=== PATIENT | female | born 1980 | race Two or more races ===

== ENCOUNTER 2020-06-15 06:11 | Emergency (ER) | payer MEDICAID ==
[~2020-06-15] VITALS: Ht 157.5 cm; Wt 63.5 kg
[2020-06-15 07:05] LABS: Basophils # (auto) 0 10 ^3/uL (0-0.2); Basophils % (auto) 0.5 % (0.0-2.0); Eosinophils # (auto) 0.1 10 ^3/uL (0-0.8); Eosinophils % (auto) 1.4 % (0.0-7.0); Hematocrit 38.8 % (36.0-46.0); Hemoglobin 13.1 g/dL (12.2-16.2); Lymphocytes % (auto) 31.1 % (10.0-50.0); Mean Corpuscular Hemoglobin 30.2 pg (28.0-32.0); Mean Corpuscular Hgb Conc. 33.9 g/dL (32.0-36.0); Mean Corpuscular Volume 89.3 fL (80.0-100.0); Monocytes # (auto) 0.6 10 ^3/uL (0-1.3); Monocytes % (auto) 9.4 % (0.0-12.0); Neutrophils # (auto) 3.6 10 ^3/uL (1.6-8.6); Neutrophils % (auto) 57.6 % (37.0-80.0); Nucleated Red Blood Cells % 0.1 %; Platelet Count (auto) 327 10^3/uL (140-450); Red Blood Cells 4.34 10^6/uL (4.0-5.20); Red Cell Distribution Width 13.2 % (11.8-14.3); White Blood Cell 6.3 10^3/uL (4.4-10.8)
[2020-06-15 07:09] LABS: Albumin 4.2 g/dL (3.4-5.0); Anion Gap 5 (5-15); Blood Urea Nitrogen 7 mg/dL (7-18); Calcium 8.6 mg/dL (8.5-10.1); Carbon Dioxide 24 mmol/L (21-32); Chloride 107 mmol/L (98-107); Glucose 91 mg/dL (74-106); Potassium 3.3 mmol/L (3.5-5.1); Sodium 136 mmol/L (136-145)
[2020-06-15 07:15] LABS: Alanine Aminotransferase 26 U/L (13-56); Alkaline Phosphatase 69 U/L (45-117); Aspartate Aminotransferase 19 U/L (15-37); Bilirubin, Total 0.6 mg/dL (0.2-1.0); GFR African American 178 mL/min; GFR Non-African American 147 mL/min; Total Protein 7.7 g/dL (6.4-8.2)
[2020-06-15] MEDS ORDERED: ASPirin 81 mg TAB PO ONE (07:15)
[2020-06-15] MEDS ORDERED: SODIUM CHLORIDE 0.9% 1,000 ML IV ONE (07:15)
[2020-06-15 07:34] LABS: INR 1.07 (0.9-1.15); Partial Thromboplastin Time 30.7 sec (23.0-31.2)
[2020-06-15] MEDS ORDERED: POTASSIUM EFFERVESENT TAB 25 MEQ PO ONE (08:30)
[2020-06-15 12:16] LABS: Urine Bacteria NONE SEEN /hpf (None Seen); Urine Blood Negative /uL (Negative); Urine Mucus FEW (None Seen); Urine Specific Gravity 1.005 (1.001-1.035); Urine WBC <1 /hpf (0 - 5)
[2020-06-15 13:59] VITALS: BP 103/66
== END 2020-06-15 14:11 | disposition home or self-care (01) ==
LOC: ER 06:11
DX: R07.89 Other chest pain (principal); E87.6 Hypokalemia; E03.9 Hypothyroidism, unspecified
CPT/HCPCS: 36415; 71046; 80053; 81001; 81025; 83735; 84443; 84484; 85025; 85610; 85730; 93005; 96360; 99285; J7030

== ENCOUNTER 2020-09-01 11:04 | Emergency (ER) | payer MEDICAID ==
[~2020-09-01] VITALS: Ht 157.5 cm; Wt 65.8 kg
[2020-09-01 12:16] VITALS: BP 118/93
== END 2020-09-01 15:23 | disposition home or self-care (01) ==
LOC: ER 11:04
DX: U07.1 COVID-19 (principal)
CPT/HCPCS: 36415; 71045; 87426

== ENCOUNTER 2021-10-07 12:37 | Emergency (ER) | payer MEDICAID ==
[~2021-10-07] VITALS: Ht 152.4 cm; Wt 63.5 kg
[2021-10-07 13:28] LABS: Urine WBC None Seen /hpf (0 - 5)
[2021-10-07 13:49] LABS: Urine Bacteria NONE SEEN /hpf (None Seen); Urine Blood TRACE /uL (Negative); Urine Specific Gravity 1.013 (1.001-1.035)
[2021-10-07 16:09] VITALS: BP 122/76
[2021-10-07] MEDS ORDERED: IBUP800T27 PO (16:28)
[2021-10-07] MEDS ORDERED: CYCL-837 PO (16:28)
[2021-10-07] MEDS ORDERED: KETOROLAC TROMETH 60MG/2ML VIAL IM ONE (16:30)
== END 2021-10-07 17:47 | disposition home or self-care (01) ==
LOC: ER 12:37
DX: S29.012A Strain of muscle and tendon of back wall of thorax, initial encounter (principal); S16.1XXA Strain of muscle, fascia and tendon at neck level, initial encounter; R10.9 Unspecified abdominal pain; K21.9 Gastro-esophageal reflux disease without esophagitis; Z79.1 Long term (current) use of non-steroidal anti-inflammatories (NSAID); Z79.899 Other long term (current) drug therapy; X58.XXXA Exposure to other specified factors, initial encounter; Y93.89 Activity, other specified; Y92.89 Other specified places as the place of occurrence of the external cause; Y99.8 Other external cause status
CPT/HCPCS: 74176; 81001; 96372; 99284; J1885

== ENCOUNTER 2022-09-21 12:03 | Emergency (ER) | payer MEDICAID ==
[~2022-09-21] VITALS: Ht 154.9 cm; Wt 68.5 kg
[~2022-09-21 12:03] MED LIST: CYCL-837 PO; IBUP800T27 PO
[2022-09-21 13:03] LABS: Urine Bacteria FEW /hpf (None Seen); Urine Blood 1+ /uL (Negative); Urine Specific Gravity 1.005 (1.001-1.035); Urine WBC 1 /hpf (0 - 5)
[2022-09-21 13:25] LABS: Basophils # (auto) 0 10 ^3/uL (0-0.2); Basophils % (auto) 0.2 % (0.0-2.0); Eosinophils # (auto) 0 10 ^3/uL (0-0.8); Eosinophils % (auto) 0.3 % (0.0-7.0); Hematocrit 40.5 % (36.0-46.0); Lymphocytes # (auto) 0.7 10 ^3/uL (0.4-5.4); Lymphocytes % (auto) 6.2 % (10.0-50.0); Mean Corpuscular Hemoglobin 30.4 pg (28.0-32.0); Mean Corpuscular Hgb Conc. 34.5 g/dL (32.0-36.0); Mean Corpuscular Volume 88.1 fL (80.0-100.0); Monocytes # (auto) 0.9 10 ^3/uL (0-1.3); Monocytes % (auto) 7.6 % (0.0-12.0); Neutrophils # (auto) 9.9 10 ^3/uL (1.6-8.6); Neutrophils % (auto) 85.7 % (37.0-80.0); Nucleated Red Blood Cells % 0.4 %; Red Cell Distribution Width 13.2 % (11.8-14.3); White Blood Cell 11.6 10^3/uL (4.4-10.8)
[2022-09-21 13:42] LABS: Albumin 4.1 g/dL (3.4-5.0); Calcium 8.8 mg/dL (8.5-10.1); Potassium 3.8 mmol/L (3.5-5.1)
[2022-09-21 13:45] LABS: BUN/Creatinine Ratio 23.1; Bilirubin, Total 0.6 mg/dL (0.2-1.0); Total Protein 7.9 g/dL (6.4-8.2)
[2022-09-21] MEDS ORDERED: DICY10CA PO (16:10)
[2022-09-21] MEDS ORDERED: ONDA-144 PO (16:10)
[2022-09-21 18:06] VITALS: BP 118/92
== END 2022-09-21 18:10 | disposition home or self-care (01) ==
LOC: ER 12:03
DX: U07.1 COVID-19 (principal); R11.2 Nausea with vomiting, unspecified; K21.9 Gastro-esophageal reflux disease without esophagitis
CPT/HCPCS: 36415; 80053; 81001; 81025; 85025

== ENCOUNTER 2025-03-16 12:43 | Emergency (ER) | payer MEDICAID ==
[~2025-03-16] VITALS: Ht 152.4 cm; Wt 69.7 kg
[~2025-03-16 12:43] MED LIST changes: +DICY10CA PO; +IBUP-1456 PO; -IBUP800T27 PO; +ONDA-144 PO
[2025-03-16 13:57] LABS: Urine Protein, UAD Negative (Negative)
--- NOTE | 2025-03-16 14:21 | ECG ---
[facility] Test Date: 2025-03-16 Test Time: 13:25:58 Pat Name: LYNDA LOUIS Department: ER Room: Gender: F Supervisor Cellars: GAIL : 1980 Requested By: ANABEL HUIZAR Order Number: [id number] Reading MD: Ocatvio Guevara Measurements Intervals [place] Rate: 86 P: 76 [place]: 146 QRS: 58 QRSD: 105 T: 57 QT: 394 QTc: 472 Interpretive Statements Sinus rhythm RSR' in V1 or V2, right VCD or RVH Electronically Signed On 03-21-2025 15:46:55 PDT by Octavio Guevara Please click the below link to view image of tracing.
[2025-03-16] MEDS: SODIUM CHLORIDE 0.9% 1,000 ML IV ONE (14:35)
[2025-03-16 14:39] VITALS: BP 142/77; TEMP 97.8
[2025-03-16] MEDS: PANTOPRAZOLE 40 MG TAB PO ONE (14:43)
[2025-03-16] MEDS: SUCRALFATE 1 GM TAB PO ONE (14:43)
[2025-03-16] MEDS: LIDOCAINE VISCOUS 2% 15ML UD PO ONE (14:44)
[2025-03-16] MEDS: ONDANSETRON HCL 4 MG/2 ML VIAL IV ONE (14:45)
[2025-03-16 14:54] VITALS: PULSE 87; RESP 16; O2SAT 98
[2025-03-16 14:58] LABS: Hematocrit 38.0 % (36.0-46.0); Hemoglobin 13.3 g/dL (12.2-16.2); Mean Corpuscular Hemoglobin 30.5 pg (28.0-32.0); Mean Corpuscular Volume 87.4 fL (80.0-100.0); Nucleated Red Blood Cells % 0.1 %
[2025-03-16 15:20] LABS: Alanine Aminotransferase 19 U/L (7-40); Alkaline Phosphatase 67 U/L (46-116); Anion Gap 10 (5-15); BUN/Creatinine Ratio 11.5 (10.0-20.0); Calcium 9.4 mg/dL (8.7-10.4); Carbon Dioxide 24 mmol/L (20-31); Chloride 106 mmol/L (98-107); Glucose 97 mg/dL (74-106); Lipase 33 U/L (12-53); Potassium 3.9 mmol/L (3.5-5.1); Sodium 140 mmol/L (136-145); Total Protein 7.3 g/dL (5.7-8.2)
[2025-03-16 15:21] LABS: Bilirubin, Total 0.6 mg/dL (0.2-1.0)
[2025-03-16 15:24] LABS: Albumin 4.8 g/dL (3.2-4.8); Blood Urea Nitrogen 7 mg/dL (9-23)
--- NOTE | 2025-03-16 15:41 | DVH ---
CHEST RADIOGRAPH Indication: epi pain, cp Technique: Single frontal view of the chest was obtained Comparison: CHEST XRAY 1 VIEW on DOS: 09/01/20 FINDINGS: Lines and Tubes: None Lungs: No focal consolidation. Pleura: No effusion. No pneumothorax. Cardiomediastinal contours: Unremarkable Bones: No acute osseous abnormality. IMPRESSION: 1. No acute cardiopulmonary disease. HS:Y
--- NOTE | 2025-03-16 15:46 | DVH ---
Exam: CT CT AB PEL WO CON-NO ORAL OR IV History: Epigastric, nausea or vomiting Comparison Study: CT ABD PELVIS WO CONTRAST on DOS: 10/07/21 TECHNIQUE: Multidetector CT of the abdomen was performed from lung bases to pubic symphysis. Imaging was performed without IV contrast. Axial, coronal and sagittal multiplanar reformats were obtained fr om the axial data set by the technologist. Radiation Dose Information: CT Dose: CTDI volume is 9.81 mGy. Dose-length product is 490.57 mGy*cm FINDINGS: Evaluation of solid organs is limited due to lack of intravenous contrast use. Findings: Lung Bases: No acute or significant lung base finding. Normal heart size. No pleural or pericardial effusion. Liver: The liver is normal in size. No focal lesions. Gallbladder and Biliary Tree: Unremarkable Spleen: Unremarkable Pancreas: The pancreas is grossly normal in appearance. Adrenal Glands: Unremarkable Kidneys: Kidneys are grossly normal without calculi or hydronephrosis. Bladder: Grossly unremarkable for degree of distention. Bowel: The stomach is grossly normal in appearance. Small bowel and colon are normal in caliber and d istribution. The appendix is not visualized; however, no secondary findings of acute appendicitis id entified. Ascites: Absent Lymphadenopathy: No mesenteric, retroperitoneal or periportal lymphadenopathy. Abdominal Wall and Mesentery: Unremarkable. Vasculature: The visualized abdominal aorta is normal in size and caliber. Evaluation of abdominal a nd pelvic vessels is limited due to lack of intravenous contrast. Pelvic Organs: Unremarkable Musculoskeletal: No aggressive focal bony lesions, acute fractures or dislocation. Soft tissues: Unremarkable IMPRESSION: 1. No abnormally distended stomach small bowel or colon. 2. No free air or free fluid. Radiation optimization: All CT scans at this facility use at least one of these dose optimization peter hniques: automated exposure control mA and/or kV adjustment per patient size (includes targeted exam s where dose is matched to clinical indication) or iterative reconstruction. HS:Y
--- NOTE | 2025-03-16 16:05 | ED.PDOC ---
GI ASSESSMENT HPI Comments HPI: Poor Historian. 44-year-old female presents to emergency department for evaluation of epigastric pain was associated nausea and vomiting nonbilious nonbloody. Patient has associated mild fatigue. pain radiates to the left and right lower rib cages bilaterally. Past Medical History: Hyperlipidemia Past Surgical History: Breast implants, , appendectomy No known drug allergy REVIEW OF SYSTEMS: CONSTITUTIONAL: Denies acute: fever, diaphoresis, chills, generalized weakness. HEAD: Denies acute: headache, photophobia Eyes: Denies acute: Double vision, vision loss, eye pain, eye discharge. EARS: Denies acute: tinnitus, hearing loss, ear discharge, ear pain, THROAT: Denies acute: sore throat, swelling, difficulty swallowing , pain with swallowing, change in voice. NECK: Denies acute: neck pain, neck swelling, stiff neck. HEART: Denies acute : chest pain, palpitations, LUNGS: Denies acute: SOB, wheezing, cough, hemoptysis ABDOMEN: Denies acute: diarrhea, melena , hematemesis, hematochezia SKIN: Denies acute: rash, redness, lesions, itchiness. EXTREMITIES: Denies acute: calf pain, numbness, tingling, weakness, denies pain in extremity. Denies acute: Low back pain. Neuro: Denies acute: focal neurological deficit, motor or sensory focal neurological deficit, tremors, seizure like activity, confusion, dizziness, change in mental status, loss of bowel or bladder function, cauda equina like symptoms. : Denies acute: dysuria, hematuria, flank pain, increase in urinary frequency. PSYCH: Denies acute: hallucination, suicidal ideation, homicidal ideation. FEMALE: Denies acute: abnormal vaginal bleeding, foul odor, unusual discharge. PHYSICAL EXAM: General: -----mild---acute distress, awake and alert. Head: normocephalic, atraumatic. Neck: supple, trachea is midline, no swelling. Throat: Normal phonation. Eyes:, no erythema, no purulent discharge, no proptosis, no icterus. Heart: regular rate, regular rhythm, no significant murmur appreciated. Lungs: no apparent respiratory distress, Able to speak in full sentences. No wheezing, no rhonchi, no crackles. No stridors Clear to auscultation bilaterally. Abdomen: Epigastric tender to palpation, non distended, soft, no guarding, no rebound, + bowel sounds. Neuro: Awake, Alert, oriented to name, self, situation, follows commands GCS=15. Speech is normal. Skin: no petechia, no purpura, no cyanosis, non-pale, not jaundice. Lower extremities: --no - Pitting edema no deformity, no focal swelling, no calf TTP. Makes eye contact. moves all four extremities. Face: no apparent facial droop. Ambulating in the ED independently. ED COURSE: DISCLAIMER: This medical document was created using an electronic medical record system with voice recognition software and computerized dictation system. Although this document has been carefully reviewed, there might still be some phonetic and typ ographical errors. Occasional wrong-word or "sound-alike" substitutions may have occurred due to the inherent limitations of voice recognition software. These areas are purely typographical due to imperfections of the software programs and do not reflect any compromise in the patient's medical care. Please read the chart carefully and recognize, using context, where these substitutions have occurred. Chief Complaint: Abdominal Pain Time Seen by MD: 13:38 Primary Care Provider: NONE Reviewed Notes: Nurses Notes, Allergies Allergies: Coded Allergies: NO KNOWN ALLERGIES (Unverified , 06/15/20) Home Meds Active Scripts Ondansetron Odt 4MG Tab (ZOFRAN PO) 4 Mg Tb, 4 MG PO Q8HPRN PRN for 3 Days, #9 TAB ODT TAB-DISSOLVE IN MOUTH, THEN SWALLOW Prov:ANABEL HUIZAR DO 03/16/25 Dicyclomine Hcl (BENTYL CAPSULE) 10 Mg Cp, 1 CAP PO Q6HPRN, #20 CAP 3 Refills Prov:NALLELY HUTCHISON PAC 09/21/22 Ondansetron (Zofran) 4 Mg Tab, 1 TAB PO Q6HR, #20 TAB Prov:NALLELY HUTCHISON PAC 09/21/22 Ibuprofen (Ibuprofen) 800 Mg Tab, 1 TAB PO TID PRN, #30 TAB 0 Refills Prov:QUINTIN PIERCE 10/07/21 Cyclobenzaprine Hcl (Cyclobenzaprine Hcl) 5 Mg Tab, 1 TAB PO QPM PRN, #15 TAB 0 Refills Prov:QUINTIN PIERCE 10/07/21 Information Source: Patient Past Medical History PAST MEDICAL HISTORY: GERD Surgical History: Denies all surgeries RECEPTION SPECIALIST History: No Pertinent RECEPTION SPECIALIST History Family History Family History: Reviewed,noncontributory to illness Social History Smoker: Non-Smoker Alcohol: Denies ETOH Use Drugs: Denies Drug Use Lives In: Home X-Ray, Labs, Meds, VS Vital Signs Date Time Temp Pulse Resp B/P (MAP) Pulse Ox O2 Delivery O2 Flow Rate FiO2 03/16/25 14:54 87 16 98 Room Air* 0 21 03/16/25 14:39 97.8 87 19 142/77 (98) 98 97.8 03/16/25 14:39 87 19 98 Room Air 03/16/25 13:25 86 Lab Test 03/16/25 16:22 03/16/25 14:29 03/16/25 13:21 Range/Units Troponin I High Sensitivity Pending < 3 L </=34 ng/L White Blood Count 5.6 4.4-10.8 10^3/uL Red Blood Count 4.35 4.0-5.20 10^6/uL Hemoglobin 13.3 12.2-16.2 g/dL Hematocrit 38.0 36.0-46.0 % Mean Corpuscular Volume 87.4 80.0-100.0 fL Mean Corpuscular Hemoglobin 30.5 28.0-32.0 pg Mean Corpuscular Hemoglobin Concent 34.9 32.0-36.0 g/dL Red Cell Distribution Width 13.5 11.8-14.3 % Platelet Count 344 140-450 10^3/uL Mean Platelet Volume 8.0 6.9-10.8 fL Neutrophils (%) (Auto) 61.7 37.0-80.0 % Lymphocytes (%) (Auto) 26.0 10.0-50.0 % Monocytes (%) (Auto) 8.5 0.0-12.0 % Eosinophils (%) (Auto) 2.6 0.0-7.0 % Basophils (%) (Auto) 1.2 0.0-2.0 % Neutrophils # (Auto) 3.4 1.6-8.6 10 ^3/uL Lymphocytes # (Auto) 1.5 0.4-5.4 10 ^3/uL Monocytes # (Auto) 0.5 0-1.3 10 ^3/uL Eosinophils # (Auto) 0.1 0-0.8 10 ^3/uL Basophils # (Auto) 0.1 0-0.2 10 ^3/uL Nucleated Red Blood Cells 0.1 % Sodium Level 140 136-145 mmol/L Potassium Level 3.9 3.5-5.1 mmol/L Chloride Level 106 98-107 mmol/L Carbon Dioxide Level 24 20-31 mmol/L Anion Gap 10 5-15 Blood Urea Nitrogen 7 L 9-23 mg/dL Creatinine 0.61 0.550-1.02 mg/dL Glomerular Filtration Rate Calc 114 >90 mL/min BUN/Creatinine Ratio 11.5 10.0-20.0 Serum Glucose 97 74-106 mg/dL Lactic Acid Level 0.7 0.4-2.0 mmol/L Calcium Level 9.4 8.7-10.4 mg/dL Total Bilirubin 0.6 0.2-1.0 mg/dL Aspartate Amino Transferase (AST) 22 13-40 U/L Alanine Aminotransferase (ALT) 19 7-40 U/L Alkaline Phosphatase 67 46-116 U/L Total Protein 7.3 5.7-8.2 g/dL Albumin 4.8 3.2-4.8 g/dL Lipase 33 12-53 U/L Urine Color Colorless Yellow Urine Clarity Clear Clear Urine pH 7.0 5.0-9.0 Urine Specific [place] 1.001 1.001-1.035 Urine Protein Negative Negative Urine Ketones Negative Negative Urine Blood Trace H Negative /uL Urine Nitrite Negative Negative Urine Bilirubin Negative Negative Urine Urobilinogen Normal Negative mg/dL Urine Leukocyte Esterase Negative Negative /uL Urine RBC None seen 0 - 4 /hpf Urine Microscopic WBC < 1 0-5 /HPF Urine Squamous Epithelial Cells None seen <5 /hpf Urine Bacteria None seen None Seen /hpf Urine Glucose Normal Normal mg/dL Urine Test Negative Negative Current Medications Medications (Trade) Dose Ordered Sig/Duncan Route Start Time Stop Time Status Last Admin Sodium Chloride 1,000 ml @ 1,000 mls/hr Q1H ONCE IV 03/16/25 14:30 03/16/25 15:29 DC 03/16/25 14:35 Ondansetron HCl (Zofran) 8 mg ONCE ONCE IV 03/16/25 14:30 03/16/25 14:31 DC 03/16/25 14:45 Sucralfate (Carafate Tab) 1 gm ONCE ONCE PO 03/16/25 14:30 03/16/25 14:31 DC 03/16/25 14:43 Pantoprazole Sodium (Protonix Tablet) 40 mg ONCE ONCE PO 03/16/25 14:30 03/16/25 14:31 DC 03/16/25 14:43 Lidocaine HCl (Xylocaine 2% Viscous) 10 ml ONCE ONCE PO 03/16/25 14:30 03/16/25 14:31 DC 03/16/25 14:44 [place] [address] Ph: [phone] DIAGNOSTIC IMAGING Diagnostic Imaging Report : [id number] Signed PATIENT: LYNDA LOUIS MACCT: [id number] UNIT: [id number] : 1980 LOC: ER ROOM / BED: / AGE / SEX: 44 / F ADM STATUS: REG ER SERVICE 1418 ORDERING PHYSICIAN: ANABEL HUIZAR DO PROCEDURE(s): ABPL - CT AB PEL WO CON-NO ORAL OR IV REASON: Epigastric, nausea or vomiting ORDER NUMBER(s): [id number], ACCESSION NUMBER(s): [id number] Exam: CT CT AB PEL WO CON-NO ORAL OR IV History: Epigastric, nausea or vomiting Comparison Study: CT ABD PELVIS WO CONTRAST on DOS: 10/07/21 TECHNIQUE: Multidetector CT of the abdomen was performed from lung bases to pubic symphysis. Imaging was performed without IV contrast. Axial, coronal and sagittal multiplanar reformats were obtained from the axial data set by the technologist. Radiation Dose Information: CT Dose: CTDI volume is 9.81 mGy. Dose-length product is 490.57 mGy*cm FINDINGS: Evaluation of solid organs is limited due to lack of intravenous contrast use. Findings: Lung Bases: No acute or significant lung base finding. Normal heart size. No pleural or pericardial effusion. Liver: The liver is normal in size. No focal lesions. Gallbladder and Biliary Tree: Unremarkable Spleen: Unremarkable Pancreas: The pancreas is grossly normal in appearance. Adrenal Glands: Unremarkable Kidneys: Kidneys are grossly normal without calculi or hydronephrosis. Bladder: Grossly unremarkable for degree of distention. Bowel: The stomach is grossly normal in appearance. Small bowel and colon are normal in caliber and distribution. The appendix is not visualized; however, no secondary findings of acute appendicitis identified. Ascites: Absent Lymphadenopathy: No mesenteric, retroperitoneal or periportal lymphadenopathy. Abdominal Wall and Mesentery: Unremarkable. Vasculature: The visualized abdominal aorta is normal in size and caliber. Evaluation of abdominal and pelvic vessels is limited due to lack of intravenous contrast. Pelvic Organs: Unremarkable Musculoskeletal: No aggressive focal bony lesions, acute fractures or dislocation. Soft tissues: Unremarkable IMPRESSION: 1. No abnormally distended stomach small bowel or colon. 2. No free air or free fluid. Radiation optimization: All CT scans at this facility use at least one of these dose optimization techniques: automated exposure control mA and/or kV adjustment per patient size (includes targeted exams where dose is matched to clinical indication) or iterative reconstruction. HS:Y ATED BY: PACO BERGMAN Jr., DO DICTATED DATE/TIME: 03/16/25 1543 SIGNED BY: PACO BERGMAN Jr., DO SIGNED DATE/TIME: 03/16/25 154 CC: PATIENT: LYNDA LOUIS MACCT: [id number] UNIT: [id number] : 1980 LOC: ER ROOM / BED: / AGE / SEX: 44 / F ADM STATUS: REG ER SERVICE 1418 ORDERING PHYSICIAN: ANABEL HUIZAR DO PROCEDURE(s): CXRP - CHEST PORTABLE REASON: epi pain, cp ORDER NUMBER(s): [id number], ACCESSION NUMBER(s): [id number] CHEST RADIOGRAPH Indication: epi pain, cp Technique: Single frontal view of the chest was obtained Comparison: CHEST XRAY 1 VIEW on DOS: 09/01/20 FINDINGS: Lines and Tubes: None Lungs: No focal consolidation. Pleura: No effusion. No pneumothorax. Cardiomediastinal contours: Unremarkable Bones: No acute osseous abnormality. IMPRESSION: 1. No acute cardiopulmonary disease. HS:Y ATED BY: PACO BERGMAN Jr., DO DICTATED DATE/TIME: 03/16/251537 SIGNED BY: PACO BERGMAN Jr., SIGNED DATE/TIME: 03/16/251537 Time of 1ST Reevaluation: 16:05 Reevaluation 1ST: Improved Patient Education/Counseling: Diagnosis, Treatment Family Education/Counseling: No Family Present SEPSIS Sepsis Screen Date sepsis recognized/suspect: Mar 16, 2025 Time Sepsis recognized/suspect: 1453 Recent Procedure: No On Antibiotic Therapy: No Respiratory Rate >20: No Heart Rate >90: No Temp<36 C (96.8 F) or >38.3 C: No SBP <90 or MAP <65 mmHG: No New Acute Mental Status Change: No Is the patient on CPAP, BIPAP,: No Physician Orders Conference Coordinator (03/16/25 ) Chest Portable (03/16/25 14:18) Ct Ab Pel Wo Con-No Oral Or Iv (03/16/25 14:18) Troponin-I Hs (03/16/25 15:18) Troponin-I Hs (03/16/25 17:18) Saline Lock (03/16/25 14:32) Vital Signs Date Time Temp Pulse Resp B/P (MAP) Pulse Ox O2 Delivery O2 Flow Rate FiO2 03/16/25 14:54 87 16 98 Room Air* 0 21 03/16/25 14:39 97.8 87 19 142/77 (98) 98 97.8 03/16/25 14:39 87 19 98 Room Air 03/16/25 13:25 86 Laboratory Tests Test 03/16/25 14:29 Lactic Acid Level 0.7 mmol/L (0.4-2.0) White Blood Count 5.6 10^3/uL (4.4-10.8) Medications Medications Dose Ordered Sig/Duncan Route Start Time Stop Time Status Last Admin Dose Admin Lidocaine HCl 10 ml ONCE ONCE PO 03/16/25 14:30 03/16/25 14:31 DC 03/16/25 14:44 Ondansetron HCl 8 mg ONCE ONCE IV 03/16/25 14:30 03/16/25 14:31 DC 03/16/25 14:45 Pantoprazole Sodium 40 mg ONCE ONCE PO 03/16/25 14:30 03/16/25 14:31 DC 03/16/25 14:43 Sodium Chloride 1,000 ml @ 1,000 mls/hr Q1H ONCE IV 03/16/25 14:30 03/16/25 15:29 DC 03/16/25 14:35 Sucralfate 1 gm ONCE ONCE PO 03/16/25 14:30 03/16/25 14:31 DC 03/16/25 14:43 Departure 1 Departure Time of Disposition: 16:39 Impression: Primary Impression: Epigastric pain Additional Impression: Nausea and vomiting Disposition: HOME / SELF CARE / HOMELESS Condition: Stable Additional Instructions: Additional instructions: You MUST follow-up with your primary care/family doctor in 1 to 2 days. If you are unable to see your primary care/family doctor, please return to our emergency room for re-assessment and re-evaluation in 1 to 2 days. Return to the emergency room here in our facility or to the nearest ER [facility] if your symptoms change or worsen. CONSULTATIONS: you MUST Follow-up for consultation as soon as possible with: gastroenterology in 1-2 days. Please call for appointment You MUST call the consultants office yourself to make an appointment. You may need to arrange that through your insurance and/or your primary/family doctor. If you are unable to see the market intelligence consultant in 1 to 2 days, you must return to our emergency room (or any other ER of your choice) for re-assessment and re- evaluation. Adequate fluid hydration. Avoid fatty greasy spicy food. Avoid caffeinated products. Avoid NSAIDs. Below is a copy of your radiological report for follow up: [place] [address] Ph: [phone] DIAGNOSTIC IMAGING Diagnostic Imaging Report : [id number] Signed PATIENT: LYNDA LOUIS ACCT: [id number] UNIT: [id number] : 1980 LOC: ER ROOM / BED: / AGE / SEX: 44 / F ADM STATUS: REG ER SERVICE 1418 ORDERING PHYSICIAN: ANABEL HUIZAR DO PROCEDURE(s): ABPL - CT AB PEL WO CON-NO ORAL OR IV REASON: Epigastric, nausea or vomiting ORDER NUMBER(s): [id number], ACCESSION NUMBER(s): [id number] Exam: CT CT AB PEL WO CON-NO ORAL OR IV History: Epigastric, nausea or vomiting Comparison Study: CT ABD PELVIS WO CONTRAST on DOS: 10/07/21 TECHNIQUE: Multidetector CT of the abdomen was performed from lung bases to pubic symphysis. Imaging was performed without IV contrast. Axial, coronal and sagittal multiplanar reformats were obtained from the axial data set by the technologist. Radiation Dose Information: CT Dose: CTDI volume is 9.81 mGy. Dose-length product is 490.57 mGy*cm FINDINGS: Evaluation of solid organs is limited due to lack of intravenous contrast use. Findings: Lung Bases: No acute or significant lung base finding. Normal heart size. No pleural or pericardial effusion. Liver: The liver is normal in size. No focal lesions. Gallbladder and Biliary Tree: Unremarkable Spleen: Unremarkable Pancreas: The pancreas is grossly normal in appearance. Adrenal Glands: Unremarkable Kidneys: Kidneys are grossly normal without calculi or hydronephrosis. Bladder: Grossly unremarkable for degree of distention. Bowel: The stomach is grossly normal in appearance. Small bowel and colon are normal in caliber and distribution. The appendix is not visualized; however, no secondary findings of acute appendicitis identified. Ascites: Absent Lymphadenopathy: No mesenteric, retroperitoneal or periportal lymphadenopathy. Abdominal Wall and Mesentery: Unremarkable. Vasculature: The visualized abdominal aorta is normal in size and caliber. Evaluation of abdominal and pelvic vessels is limited due to lack of intravenous contrast. Pelvic Organs: Unremarkable Musculoskeletal: No aggressive focal bony lesions, acute fractures or dis location. Soft tissues: Unremarkable IMPRESSION: 1. No abnormally distended stomach small bowel or colon. 2. No free air or free fluid. Radiation optimization: All CT scans at this facility use at least one of these dose optimization techniques: automated exposure control mA and/or kV adjustment per patient size (includes targeted exams where dose is matched to clinical indication) or iterative reconstruction. HS:Y ATED BY: PACO BERGMAN Jr., DO DICTATED DATE/TIME: 03/16/25 154 SIGNED BY: PACO BERGMAN Jr., DO SIGNED DATE/TIME: 03/16/251542 CC: e-Prescriptions Ondansetron Odt 4MG Tab (ZOFRAN PO) 4 Mg Tb 4 MG PO Q8HPRN PRN for 3 Days, #9 TAB ODT TAB-DISSOLVE IN MOUTH, THEN SWALLOW Prov: ANABEL HUIZAR DO 03/16/25 Discharged With: Self I personally scribed for ANABEL HUIZAR DO ([email or web address]) on 03/16/25 at 16:50. Electronically submitted by Jose Baxter ([email or web address]). ANABEL HUIZAR DO Mar 16, 2025 16:05
[2025-03-16] MEDS ORDERED: ZOFR4T PO (16:40)
== END 2025-03-16 17:31 | disposition home or self-care (01) ==
LOC: ER 12:43
DX: R10.13 Epigastric pain (principal); R11.2 Nausea with vomiting, unspecified; R07.81 Pleurodynia; K21.9 Gastro-esophageal reflux disease without esophagitis; E78.5 Hyperlipidemia, unspecified; Z98.890 Other specified postprocedural states; Z90.89 Acquired absence of other organs; Z79.899 Other long term (current) drug therapy
CPT/HCPCS: 36415; 71045; 74176; 80053; 81001; 81025; 83605; 83690; 84484; 85025; 93005; 96361; 96374; 99285; J2405; J7030